=== PATIENT | female | born 1985 | race Caucasian/White ===

== ENCOUNTER 2016-09-28 20:31 | Emergency (ER) | payer SELFPAY ==
[~2016-09-28 20:31] MED LIST: Iopamidol 370 76% 100 ML VIAL ONE; Sodium Chloride 0.9% 1,000 ML BAG ONE
[2016-09-28] MEDS ORDERED: Morphine Sulfate 2 MG/ML SYRINGE ONE (20:59)
[2016-09-28] MEDS ORDERED: diphenhydrAMINE HCl 50 MG/ML 1 ML VIAL ONE (20:59)
[2016-09-28 21:18] LABS: PTT 29.2 SEC (22.9-36.1); Prothrombin Time 13.1 SEC (12.0-14.7)
[2016-09-28 21:28] LABS: #Basophils 0.1 thou/uL (0.0-0.2); #Eosinphils 0.5 thou/uL (0.0-0.7); #Lymphocytes 3.3 thou/uL (1.20-3.40); #Monocytes 0.6 thou/uL (0.11-0.59); #Neutrophils 4.8 thou/uL (1.40-6.50); %Basophils 1.5 % (0.0-1.0); %Eosinophils 5.3 % (0.0-10.0); %Lymphocytes 34.9 % (21.0-51.0); %Monocytes 6.5 % (0.0-10.0); %Neutrophils 51.7 % (42.0-75.0); ALT (SGPT) 11 U/L (8-55); AST (SGOT) 10 U/L (5-34); Albumin 3.9 g/dL (3.5-5.0); Alkaline Phosphatase 45 U/L (40-150); Anion Gap 13 mmol/L (10-20); BUN (Urea Nitrogen) 13 mg/dL (7.0-18.7); Bilirubin, Total 0.3 mg/dL (0.2-1.2); Calc. Creatinine Clearance 0 mL/min (70-130); Calcium 8.7 mg/dL (7.8-10.44); Carbon Dioxide 23 mmol/L (22-29); Chloride 109 mmol/L (98-107); Estimated GFR-MDRD 79; Globulin 2.6 g/dL (2.4-3.5); Glucose 107 mg/dL (70-105); Hemoglobin 13.6 g/dL (12.0-16.0); Lipase 27 U/L (8-78); Mean Corpuscular Hemoglobin 30.2 pg (27.0-31.0); Mean Corpuscular Volume 88.8 fl (81.0-99.0); Mean Platelet Volume 7.7 fL (7.4-10.4); Platelet Count 206 thou/uL (130-400); Potassium 3.9 mmol/L (3.5-5.1); Protein, Total 6.5 g/dL (6.0-8.3); RBC Distribution Width 11.3 % (11.5-14.5); Red Blood Cell (RBC) Count 4.52 mill/uL (4.20-5.40); Sodium 141 mmol/L (136-145); White Blood Cell (WBC) Count 9.3 thou/uL (4.8-10.8)
[2016-09-28] MEDS ORDERED: Ondansetron HCl/PF 4 MG/2 ML Vial ONE (21:28)
[2016-09-28 21:29] LABS: Bilirubin Negative (Negative); Blood, Urine Negative (Negative); Clarity Clear (Clear); Glucose, Urine (Dipstick) Negative (Negative); Leukocyte Negative (Negative); Nitrite Negative (Negative); Pregnancy Test - Urine (BHCG) Negative (Negative); Pregu Control Background? CLEAR/WHITE (CLR/WHITE); Pregu Control Bar Appear? YES (CONTROL BAR); Protein, Urine (Dipstick) Trace mg/dL (Neg-Trace); Urobilinogen 0.2 mg/dL (0.2-1.0); pH, Urine 7.5 (5.0-9.0)
--- NOTE | 2016-09-28 22:15 | CT ---
CT ABDOMEN AND PELVIS WITH CONTRAST 09/28/16 HISTORY: Abdominal pain. COMPARISON: CT abdomen and pelvis with contrast, 02/08/16. FINDINGS: Lung bases are clear. No pericardial effusion. Prior cholecystectomy. Liver and spleen are unremarka ble. The aortoiliac contour is without aneurysmal dilatation. Small volume free fluid in the pelvis. There is dilatation of the pelvic veins bilaterally. There is a peripherally enhancing structure in the right adnexa, likely an adnexal cyst. The pancreas and kidneys are unremarkable. No hydronephrosis. Skeleton is unremarkable. No dilated loops of large or small bowel. The appendix is visualized and is normal. IMPRESSION: 1. No acute inflammatory process in the pelvis. 2. Likely right adnexal cyst measuring up to just under 3 cm. 3. Dilatation of the gonadal veins and pelvic veins can be seen with pelvic congestive syndrome and cause patient's pain. 4. Normal appendix. POS: [facility]
[2016-09-28] MEDS ORDERED: Ketorolac Tromethamine 30 MG/ML VIAL ONE (22:22)
== END 2016-09-28 22:20 | disposition home or self-care (01) ==
LOC: MADERS 20:31
DX: N83.201 Unspecified ovarian cyst, right side (principal); Z87.891 Personal history of nicotine dependence; Z79.899 Other long term (current) drug therapy
CPT/HCPCS: 36415; 74177; 80053; 81003; 81025; 83605; 83690; 85025; 85610; 85730; 94760; 96361; 96374; 96375; J1200; J1885; J2270; J2405; J7050

== ENCOUNTER 2016-11-12 10:01 | Emergency (ER) | payer MEDICAID, SELFPAY ==
[2016-11-12 11:26] LABS: Bilirubin Negative (Negative); Blood, Urine Trace (Negative); Clarity Hazy (Clear); Glucose, Urine (Dipstick) Negative (Negative); Leukocyte Negative (Negative); Nitrite Negative (Negative); Protein, Urine (Dipstick) Negative (Neg-Trace); RBC/HPF 0-3 HPF (0-3); Urobilinogen 0.2 mg/dL (0.2-1.0); WBC/HPF 0-3 HPF (0-3); pH, Urine 6.5 (5.0-9.0)
[2016-11-12 11:27] LABS: Bacteria/HPF Rare-Few HPF (None Seen)
[2016-11-12] MEDS ORDERED: HYDROcodone/Acetaminophen 10/325 mg Tablet ONE (12:20)
[2016-11-12] MEDS ORDERED: Ondansetron ODT 4 MG TAB ONE (12:21)
[2016-11-12] MEDS ORDERED: Naproxen 500 MG TAB ONE (12:21)
[2016-11-12] MEDS ORDERED: Azithromycin 250 MG TAB ONE (12:21)
[2016-11-12] MEDS ORDERED: Sulfameth/Trimethoprim DS 800-160mg TAB ONE (12:21)
== END 2016-11-12 12:30 | disposition home or self-care (01) ==
LOC: MADERS 10:01
DX: S20.462A Insect bite (nonvenomous) of left back wall of thorax, initial encounter (principal); K58.9 Irritable bowel syndrome, unspecified; Z87.891 Personal history of nicotine dependence; Z79.899 Other long term (current) drug therapy; W57.XXXA Bitten or stung by nonvenomous insect and other nonvenomous arthropods, initial encounter
CPT/HCPCS: 81003; 81015; 99283; Q0162

== ENCOUNTER 2018-01-07 16:14 | Emergency (ER) | payer MEDICAID, SELFPAY ==
[2018-01-07] MEDS ORDERED: Dexamethasone 10 MG/ML VIAL ONE (16:57)
== END 2018-01-07 17:16 | disposition home or self-care (01) ==
LOC: MADERS 16:14
DX: J06.9 Acute upper respiratory infection, unspecified (principal); Z87.891 Personal history of nicotine dependence; Z79.899 Other long term (current) drug therapy
CPT/HCPCS: 96372; J1100

== ENCOUNTER 2018-02-02 12:47 | Emergency (ER) | payer SELFPAY ==
[2018-02-02] MEDS ORDERED: Oseltamivir 75 MG CAP ONE (13:33)
== END 2018-02-02 13:45 | disposition home or self-care (01) ==
LOC: MADERS 12:47
DX: J11.1 Influenza due to unidentified influenza virus with other respiratory manifestations (principal); Z87.891 Personal history of nicotine dependence; Z79.899 Other long term (current) drug therapy
CPT/HCPCS: 87081; 87430; 87804; 99283

== ENCOUNTER 2018-04-22 17:26 | Emergency (ER) | payer SELFPAY ==
[2018-04-22] MEDS ORDERED: Ibuprofen 600 MG TAB ONE (17:42)
== END 2018-04-22 18:50 | disposition home or self-care (01) ==
LOC: MADERS 17:26
DX: B34.9 Viral infection, unspecified (principal); Z87.891 Personal history of nicotine dependence; Z79.899 Other long term (current) drug therapy
CPT/HCPCS: 87081; 87430; 87804; 99283

== ENCOUNTER 2018-05-03 06:14 | Emergency (ER) | payer SELFPAY ==
[2018-05-03] MEDS ORDERED: HYDROcodone/Acetaminophen 5/325 mg Tablet ONE (07:09)
[2018-05-03] MEDS ORDERED: Azithromycin 250 MG TAB ONE (07:10)
[2018-05-03] MEDS ORDERED: Dexamethasone 4 MG TAB ONE (07:10)
[2018-05-03] MEDS ORDERED: Benzonatate 100 MG CAP ONE (07:10)
== END 2018-05-03 07:20 | disposition home or self-care (01) ==
LOC: MADERS 06:14
DX: J18.9 Pneumonia, unspecified organism (principal); K58.9 Irritable bowel syndrome, unspecified; Z87.891 Personal history of nicotine dependence; Z79.899 Other long term (current) drug therapy
CPT/HCPCS: 87804; 99284; J8540

== ENCOUNTER 2019-04-27 17:02 | Emergency (ER) | payer OTHER ==
[2019-04-27] MEDS ORDERED: Ibuprofen 600 MG TAB ONE (17:25)
[2019-04-27] MEDS ORDERED: Dexamethasone 10 MG/ML VIAL ONE (18:06)
== END 2019-04-27 18:10 | disposition home or self-care (01) ==
LOC: MADERS 17:02
DX: J02.9 Acute pharyngitis, unspecified (principal); Z79.899 Other long term (current) drug therapy; Z87.891 Personal history of nicotine dependence
CPT/HCPCS: 87081; 87430; 87804; 99283; J1100